=== PATIENT | male | born 1985 | race Caucasian/White ===

== ENCOUNTER → 2016-08-16 | Outpatient (REF) | payer OTHER | END | disposition home or self-care (01) | LOC: M LAB REF 18:04 | PROVIDERS: ATTEND Physician Assistant Medical | DX: Z13.9 Encounter for screening, unspecified (principal) ==

== ENCOUNTER 2016-08-18 16:15 | Emergency (ER) | payer OTHER ==
[2016-08-18] MEDS ORDERED: dexameTHASONE 20 MG/5 ML VIAL (J1100) As Ordered ONE (17:26)
[2016-08-18] MEDS ORDERED: CLINDAMYCIN INJ 900MG/6ML VIAL As Ordered ONE (17:26)
[2016-08-18] MEDS ORDERED: LIDOCAINE W/EPINEPHRINE 1% 20ML VIAL As Ordered ONE (17:40)
[2016-08-18 17:59] LABS: ANION GAP 12 MEQ/L (8-16); BLOOD UREA NITROGEN 8 MG/DL (7-18); CALCIUM LEVEL 9.8 MG/DL (8.5-10.1); CARBON DIOXIDE LEVEL 30 MEQ/L (21-32); CHLORIDE LEVEL 100 MEQ/L (98-107); CREATININE FOR GFR 0.77 MG/DL (0.70-1.30); GLOMERULAR FILTRATION RATE > 60.0 (>60); GLUCOSE, FASTING 97 MG/DL (70-105); POTASSIUM SERUM 3.9 MEQ/L (3.5-5.1); SODIUM LEVEL 142 MEQ/L (136-145)
[2016-08-18 18:00] LABS: MEAN CORPUSCULAR HEMOGLOBIN 33.5 pg (27.0-33.0); MEAN CORPUSCULAR HGB CONC 34.6 g/dl (32.0-36.5); MEAN CORPUSCULAR VOLUME 96.8 fl (80.0-96.0); RED CELL DISTRIBUTION WIDTH 11.5 % (11.5-14.5)
--- NOTE | 2016-08-18 20:02 | EDDOCDS ---
Nurse's Notes [facility] Name: Farhat Sands Age: 30 yrs Sex: Male : 1985 Arrival Date: 08/18/2016 Time: 16:15 Bed TR7 Private MD: NO PRIMARY PHYSICIAN, . Diagnosis: Peritonsillar abscess Presentation: 08/18 16:18 Presenting complaint: Patient states: Sore throat since , difficulty dwg swallowing. Also having chills and headaches. Adult Sepsis Screening: The patient does not have new or worsening altered mentation. Patient's respiratory rate is less than 22. Systolic blood pressure is greater than 100. Patient has a qSOFA score of 0- Negative Sepsis Screen. Suicide/Homicide risk assessment- the patient denies having any suicidal and/or homicidal ideations and does not present with any other emotional, behavioral or mental health complaints. Status: Patient is not a behavioral services tech or dependent. Transition of care: patient was not received from another setting of care. 16:18 Acuity: MARVA Level 4 dwg 16:18 Method Of Arrival: Walkin/Carried/Asstd dwg Triage Assessment: 16:21 General: Appears in no apparent distress. Pain: Pain currently is 7 out of 10 on a pain dwg scale. HIV screening NA for this visit Offered previously. Historical: - Allergies: no known allergies; - Home Meds: 1. Motrin 600 mg Oral tab 1 tab prn (Last dose: 08/18/2016 14:00) 2. Theraflu Nighttime Severe Cold-Cough oral oral Unknown as needed (Last dose: 08/18/2016 08:00) - PMHx: none; - PSHx: none; - Social history: Smoking status: Patient uses tobacco products, current every day smoker. No barriers to communication noted, The patient speaks fluent Sami. - Family history: Not pertinent. - : The pt / caregiver states he / she is not on anticoagulants. Home medication list is obtained from the patient. - Exposure Risk Screening:: None identified. Screenin:59 Screening information is obtained from the patient. Fall risk: No risks identified. kcs Assistance ADL's: requires no assistance with activities of daily living. Abuse/DV Screen: The patient / caregiver reports he/she is: not in a situation that causes fear, pain or injury. Nutritional screening: No deficits noted. Advance Directives: Currently, there is no health care proxy. There is no living will. home support is adequate. Assessment: 16:59 General: Appears comfortable, well developed, well nourished, well groomed, Behavior is kcs cooperative, pleasant. Pain: Location: throat. Neurological: Level of Consciousness is awake, alert. EENT: Throat has enlarged tonsils on left No drooling, no stridor. Respiratory: Airway is patent Respiratory effort is even, unlabored, Respiratory pattern is regular, symmetrical. Derm: Skin is intact, is healthy with good turgor, Skin is dry, Skin is normal. 17:29 Adult Sepsis Screening: The patient does not have new or worsening altered mentation. dsf Patient's respiratory rate is less than 22. Systolic blood pressure is greater than 100. Patient has a qSOFA score of 0- Negative Sepsis Screen. General: Appears in no apparent distress, comfortable, Behavior is appropriate for age, cooperative, pleasant. Pain: Location: throat Pain currently is 7 out of 10 on a pain scale. Quality of pain is described as sharp. Neurological: Level of Consciousness is awake, alert. Cardiovascular: Capillary refill < 3 seconds. Respiratory: Airway is patent Respiratory effort is even, unlabored, Respiratory pattern is regular, symmetrical. Derm: Skin is pink, warm & dry. 17:31 EENT: Throat has enlarged tonsils on left. dsf 17:48 General: Dr. Garzon in examining patient and aspirated from the left tonsil . dsf 18:35 General: Appears in no apparent distress, comfortable, Behavior is appropriate for age, dsf cooperative. Pain: Location: throat Pain currently is 3 out of 10 on a pain scale. Neurological: Level of Consciousness is awake, alert. Cardiovascular: Capillary refill < 3 seconds. Respiratory: Airway is patent Respiratory effort is even, unlabored, Respiratory pattern is regular, symmetrical. Derm: Skin is pink, warm & dry. Vital Signs: 16:17 BP 172 / 92; Pulse 110; Resp 18; Temp 99.6(O); Pulse Ox 100% ; Weight 65.77 kg; Height cmb 5 ft. 10 in. (177.80 cm); Pain 7/10; 18:29 BP 118 / 64; Pulse 104; Resp 18; Temp 100.1; Pulse Ox 98% ; Pain 5/10; jam1 16:17 Body Mass Index 20.81 (65.77 kg, 177.80 cm) cmb Vitals: 16:17 Log In Time: August 18, 2016 at 16:15. cmb ED Course: 16:16 Patient visited by Beatriz Ratliff. cmb 16:16 NO PRIMARY PHYSICIAN, . is Private Physician. cmb 16:16 Patient moved to Waiting cmb 16:17 Patient moved to Pre RCE cmb 16:20 Triage Initiated dwg 16:53 Olman North FNP is PHCP. ke 16:53 Patient moved to I8 / 16 dwg 16:54 Patient visited by Olman North FNP. ke 16:54 Patient visited by Olman North FNP. ke 16:59 The patient / caregiver is instructed regarding the plan of care and ED course. kcs 17:27 Patient visited by Olman North FNP. ke 17:29 CBC Sent. dsf 17:29 BMP Sent. dsf 17:29 Inserted saline lock: 18 gauge in left antecubital area The patient tolerated the dsf procedure well. 17:32 Patient visited by Noy Toro,RN. dsf 17:48 Patient visited by Noy Toro,BONILLA. dsf 17:57 Puneet Garzon is Referral Physician. ke 18:07 Throat Culture Sent. kc3 18:26 Patient name changed from Farhat\S\\S\Grinnell\S\ to Farhat\S\ \S\Grinnell. EDMS 18:30 [facility] [place] was scanned into [employer] and attached to record. gjb 18:35 Discontinued lock intact, bleeding controlled, pressure dressing applied, No dsf redness/swelling at site. No procedures done that require assistance. 19:19 Patient moved to TR7 kc3 Administered Medications: 17:55 Drug: Clindamycin 900 mg [clindamycin 150 mg/mL injection solution] Route: IVPB; kc3 Infused Over: 30 mins; Site: left antecubital; 18:27 Follow up: IV Status: Completed infusion; IV Intake: 50ml dsf 17:55 Drug: Dexamethasone 10 mg [dexamethasone 4 mg/mL injection solution] Route: IV; Rate: kc3 bolus; Site: left antecubital; 17:55 Drug: NS 0.9% 1000 ml [sodium chloride 0.9 % intravenous solution] Route: IV; Rate: 250 kc3 mL/hr; Site: left antecubital; Intake: 18:27 IV: 50.00ml; Total: 50.00ml. dsf Order Results: Lab Order: CBC; SPEC08/18/16 17:19 Test: WHITE BLOOD COUNT; Value: 15.0; Range: 4.0-10.0; Abnormal: Above high normal; Units: K/mm3; Status: F Test: RED BLOOD COUNT; Value: 4.35; Range: 4.30-6.10; Units: M/mm3; Status: F Test: HEMOGLOBIN; Value: 14.5; Range: 14.0-18.0; Units: g/dl; Status: F Test: HEMATOCRIT; Value: 42.1; Range: 42.0-52.0; Units: %; Status: F Test: MEAN CORPUSCULAR VOLUME; Value: 96.8; Range: 80.0-96.0; Abnormal: Above high normal; Units: fl; Status: F Test: MEAN CORPUSCULAR HEMOGLOBIN; Value: 33.5; Range: 27.0-33.0; Abnormal: Above high normal; Units: pg; Status: F Test: MEAN CORPUSCULAR HGB CONC; Value: 34.6; Range: 32.0-36.5; Units: g/dl; Status: F Test: RED CELL DISTRIBUTION WIDTH; Value: 11.5; Range: 11.5-14.5; Units: %; Status: F Test: PLATELET COUNT, AUTOMATED; Value: 352; Range: 150-450; Units: k/mm3; Status: F Lab Order: BMP; SPEC'08/18/16 17:19 Test: GLUCOSE, FASTING; Value: 97; Range: 70-105; Units: MG/DL; Status: F Test: BLOOD UREA NITROGEN; Value: 8; Range: 7-18; Units: MG/DL; Status: F Test: CREATININE FOR GFR; Value: 0.77; Range: 0.70-1.30; Units: MG/DL; Status: F Test: GLOMERULAR FILTRATION RATE; Value: > 60.0; Range: >60; Status: F Test: SODIUM LEVEL; Value: 142; Range: 136-145; Units: MEQ/L; Status: F Test: POTASSIUM SERUM; Value: 3.9; Range: 3.5-5.1; Units: MEQ/L; Status: F Test: CHLORIDE LEVEL; Value: 100; Range: 98-107; Units: MEQ/L; Status: F Test: CARBON DIOXIDE LEVEL; Value: 30; Range: 21-32; Units: MEQ/L; Status: F Test: ANION GAP; Value: 12; Range: 8-16; Units: MEQ/L; Status: F Test: CALCIUM LEVEL; Value: 9.8; Range: 8.5-10.1; Units: MG/DL; Status: F Test Note: ; Units are mL/min/1.73 m2 Chronic Kidney Disease Staging per NKF: Stage I & II GFR >=60 Normal to Mildly Decreased Stage III GFR 30-59 Moderately Decreased Stage IV GFR 15-29 Severely Decreased Stage V GFR <15 Very Little GFR Left ESRD GFR <15 on RETAIL MERCHANDISER Outcome: 17:57 Discharge ordered by Provider. ke 18:35 Discharge Assessment: Patient awake, alert and oriented x 3. No cognitive and/or dsf functional deficits noted. Patient verbalized understanding of disposition instructions. patient administered narcotics - no. The following High Risk Discharge criteria are identified: None. Discharged to home ambulatory. Condition: stable. Discharge instructions given to patient, Instructed on discharge instructions, follow up and referral plans. medication usage, no driving heavy equipment, Demonstrated understanding of instructions, medications, Pt was receptive of discharge instructions/ teaching. Prescriptions given X 2, Work note provided to patient. No special radiology studies were completed. Property sent home with patient. 20:01 Patient left the ED. dsf Signatures: Dispatcher [employer] EDDenise Combs, RN RN Narinder Noguera RN RN Bessy Kate, GANG INVESTIGATOR GANG INVESTIGATOR jam1 Olman North, MANUFACTURING TEST TECHNICIAN MANUFACTURING TEST TECHNICIAN Noy Lyle RN RN dsf Boshart, Chelsea cmb Crane, Kelsi, RN RN kc3 Asmita Harrison MTDD
--- NOTE | 2016-08-18 20:02 | EDDOCDS ---
Physician Documentation [facility] Name: Farhat Sands Age: 30 yrs Sex: Male : 1985 Arrival Date: 08/18/2016 Time: 16:15 Bed TR7 Private MD: NO PRIMARY PHYSICIAN, . Disposition: 08/18/16 17:57 Discharged to Home/Self Care. Impression: Peritonsillar abscess. - Condition is Stable. - Discharge Instructions: Peritonsillar Abscess. - Prescriptions for Clindamycin HCl 150 mg Oral Capsule - take 1 capsule by ORAL route 4 times per day for 10 days; 40 capsule. [place] 5- 325 mg Oral Tablet - take 1 tablet by ORAL route every 6 hours As needed MDD: 4 tabs; 20 tablet. - Medication Reconciliation, Local Pharmacy Hours, Work Release Form - 3 day form. - Follow up: Puneet Garzon; When: 1 week; Reason: Recheck today's complaints, Continuance of care. - Problem is an ongoing problem. - Symptoms have improved. Historical: - Allergies: no known allergies; - Home Meds: 1. Motrin 600 mg Oral tab 1 tab prn (Last dose: 08/18/2016 14:00) 2. Theraflu Nighttime Severe Cold-Cough oral oral Unknown as needed (Last dose: 08/18/2016 08:00) - PMHx: none; - PSHx: none; - Social history: Smoking status: Patient uses tobacco products, current every day smoker. No barriers to communication noted, The patient speaks fluent Icelandic. - Family history: Not pertinent. - : The pt / caregiver states he / she is not on anticoagulants. Home medication list is obtained from the patient. - Exposure Risk Screening:: None identified. Vital Signs: 08/18 16:17 BP 172 / 92; Pulse 110; Resp 18; Temp 99.6(O); Pulse Ox 100% ; Weight 65.77 kg / 145 cmb lbs; Height 5 ft. 10 in. (177.80 cm); Pain 7/10; 18:29 BP 118 / 64; Pulse 104; Resp 18; Temp 100.1; Pulse Ox 98% ; Pain 5/10; jam1 16:17 Body Mass Index 20.81 (65.77 kg, 177.80 cm) cmb MDM: 17:07 Clindamycin 900 mg IVPB once over 30 mins; dilute in 50mL of NS or D5W ordered. ke 17:07 Dexamethasone 10 mg IV at bolus once ordered. ke 17:07 NS 0.9% 1000 ml IV at 250 mL/hr continuous ordered. ke 17:08 CBC Ordered. EDMS 17:08 BMP Ordered. EDMS 17:29 IV Saline Lock ordered. dsf 17:57 Throat Culture Ordered. EDMS 18:14 Financial registration complete. gjb 18:30 [facility] Payment Agreement was scanned into [employer] and attached to record. gjb Administered Medications: 17:55 Drug: Clindamycin 900 mg [clindamycin 150 mg/mL injection solution] Route: IVPB; kc3 Infused Over: 30 mins; Site: left antecubital; 18:27 Follow up: IV Status: Completed infusion; IV Intake: 50ml dsf 17:55 Drug: Dexamethasone 10 mg [dexamethasone 4 mg/mL injection solution] Route: IV; Rate: kc3 bolus; Site: left antecubital; 17:55 Drug: NS 0.9% 1000 ml [sodium chloride 0.9 % intravenous solution] Route: IV; Rate: 250 kc3 mL/hr; Site: left antecubital; Signatures: Dispatcher [employer] EDDenise Combs RN Narinder Barone RN RN dwg Elsner, Karl, FNP FNP ke Fuller, DesireeRN RN dsSalina Bustillos, PARos PA-Lio dt4 Asmita Harrison Kelsi RN kc3 The chart was reviewed and I authenticate all verbal orders and agree with the evaluation and treatment provided.Corrections: (The following items were deleted from the chart) 17:01 16:37 Strep Screen, Nursing ordered. dt4 kcs Attachments: 18:30 [facility] Payment Agreement gjb MTDD
--- NOTE | 2016-08-19 21:17 | HPE ---
DATE OF ADMISSION: 08/18/2016 Farhat Sands is a 30-year-old gentleman who presents with a history of a sore throat. It started , i.e., 4 days ago. He has not received any treatment. It is worse on the left side. He had infectious mononucleosis many years ago and has had recurrent sore throats since then. He has not had a sore throat, however, for the last 3 years. It is hard to swallow because of the pain. He has no difficulty with breathing. He can swallow liquids. Otherwise the patient is healthy. Examination shows he is alert and oriented and in no distress per breathing. He has good range of motion of his mandible. He could open his mouth well. There is erythema in the peritonsillar area on the right side but not a lot of edema. He has 2+ to 3+ tonsillar hypertrophy. He has some enlargement of the jugulodigastric lymph nodes but not much. Under local anesthesia I infiltrated with lidocaine and epinephrine. I did a needle aspiration and there was no fluid there. IMPRESSION: Patient has a left peritonsillar cellulitis. Patient will receive intravenous (IV) antibiotic times one and steroids and then go home on oral clindamycin. If his symptoms become worse, then he will return for a followup.
--- NOTE | 2016-08-20 21:02 | EDDOCDS ---
Physician Documentation [facility] Name: Farhat Sands Age: 30 yrs Sex: Male : 1985 Arrival Date: 08/18/2016 Time: 16:15 Bed TR7 Private MD: NO PRIMARY PHYSICIAN, . Disposition: 08/18/16 17:57 Discharged to Home/Self Care. Impression: Peritonsillar abscess. - Condition is Stable. - Discharge Instructions: Peritonsillar Abscess. - Prescriptions for Clindamycin HCl 150 mg Oral Capsule - take 1 capsule by ORAL route 4 times per day for 10 days; 40 capsule. [place] 5- 325 mg Oral Tablet - take 1 tablet by ORAL route every 6 hours As needed MDD: 4 tabs; 20 tablet. - Medication Reconciliation, Local Pharmacy Hours, Work Release Form - 3 day form. - Follow up: Puneet Garzon; When: 1 week; Reason: Recheck today's complaints, Continuance of care. - Problem is an ongoing problem. - Symptoms have improved. Historical: - Allergies: no known allergies; - Home Meds: 1. Motrin 600 mg Oral tab 1 tab prn (Last dose: 08/18/2016 14:00) 2. Theraflu Nighttime Severe Cold-Cough oral oral Unknown as needed (Last dose: 08/18/2016 08:00) - PMHx: none; - PSHx: none; - Social history: Smoking status: Patient uses tobacco products, current every day smoker. No barriers to communication noted, The patient speaks fluent Upper Sorbian. - Family history: Not pertinent. - : The pt / caregiver states he / she is not on anticoagulants. Home medication list is obtained from the patient. - Exposure Risk Screening:: None identified. Vital Signs: 08/18 16:17 BP 172 / 92; Pulse 110; Resp 18; Temp 99.6(O); Pulse Ox 100% ; Weight 65.77 kg / 145 cmb lbs; Height 5 ft. 10 in. (177.80 cm); Pain 7/10; 18:29 BP 118 / 64; Pulse 104; Resp 18; Temp 100.1; Pulse Ox 98% ; Pain 5/10; jam1 16:17 Body Mass Index 20.81 (65.77 kg, 177.80 cm) cmb MDM: 17:07 Clindamycin 900 mg IVPB once over 30 mins; dilute in 50mL of NS or D5W ordered. ke 17:07 Dexamethasone 10 mg IV at bolus once ordered. ke 17:07 NS 0.9% 1000 ml IV at 250 mL/hr continuous ordered. ke 17:08 CBC Ordered. EDMS 17:08 BMP Ordered. EDMS 17:29 IV Saline Lock ordered. dsf 17:57 Throat Culture Ordered. EDMS 18:14 Financial registration complete. [facility] :30 [facility] Payment Agreement was scanned into [employer] and attached to record. [facility] 08/19 11:33 T-Sheet-- Draft Copy was scanned into [employer] and attached to record. gb Administered Medications: 08/18 17:55 Drug: Clindamycin 900 mg [clindamycin 150 mg/mL injection solution] Route: IVPB; kc3 Infused Over: 30 mins; Site: left antecubital; 18:27 Follow up: IV Status: Completed infusion; IV Intake: 50ml dsf 17:55 Drug: Dexamethasone 10 mg [dexamethasone 4 mg/mL injection solution] Route: IV; Rate: kc3 bolus; Site: left antecubital; 17:55 Drug: NS 0.9% 1000 ml [sodium chloride 0.9 % intravenous solution] Route: IV; Rate: 250 kc3 mL/hr; Site: left antecubital; Signatures: Dispatcher [facility] Denise Walker RN Narinder Barone RN RN dwg Barnhardt, Gloria, Reg Reg Olman Sellers, ASSEMBLER INSTALLER GENERAL ASSEMBLER INSTALLER GENERALNoy Angel RN RN dsf Tschudi, Diane, PA-C PA-C dt4 Beck, Gabriela gjb Crane, Kelsi RN kc3 The chart was reviewed and I authenticate all verbal orders and agree with the evaluation and treatment provided.Corrections: (The following items were deleted from the chart) 17:01 16:37 Strep Screen, Nursing ordered. dt4 herb Attachments: :30 [facility] Payment Agreement [facility] 08/19 11:33 T-Sheet-- Draft Copy gb Chart Complete MTDD
--- NOTE | 2016-08-20 21:02 | EDDOCDS ---
Nurse's Notes [facility] Name: Farhat Sands Age: 30 yrs Sex: Male : 1985 Arrival Date: 08/18/2016 Time: 16:15 Bed TR7 Private MD: NO PRIMARY PHYSICIAN, . Diagnosis: Peritonsillar abscess Presentation: 08/18 16:18 Presenting complaint: Patient states: Sore throat since , difficulty dwg swallowing. Also having chills and headaches. Adult Sepsis Screening: The patient does not have new or worsening altered mentation. Patient's respiratory rate is less than 22. Systolic blood pressure is greater than 100. Patient has a qSOFA score of 0- Negative Sepsis Screen. Suicide/Homicide risk assessment- the patient denies having any suicidal and/or homicidal ideations and does not present with any other emotional, behavioral or mental health complaints. 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 Transition of care: patient was not received from another setting of care. 16:18 Acuity: MARVA Level 4 dwg 16:18 Method Of Arrival: Walkin/Carried/Asstd dwg Triage Assessment: 16:21 General: Appears in no apparent distress. Pain: Pain currently is 7 out of 10 on a pain dwg scale. HIV screening NA for this visit Offered previously. Historical: - Allergies: no known allergies; - Home Meds: 1. Motrin 600 mg Oral tab 1 tab prn (Last dose: 08/18/2016 14:00) 2. Theraflu Nighttime Severe Cold-Cough oral oral Unknown as needed (Last dose: 08/18/2016 08:00) - PMHx: none; - PSHx: none; - Social history: Smoking status: Patient uses tobacco products, current every day smoker. No barriers to communication noted, The patient speaks fluent Azeri. - Family history: Not pertinent. - : The pt / caregiver states he / she is not on anticoagulants. Home medication list is obtained from the patient. - Exposure Risk Screening:: None identified. Screenin:59 Screening information is obtained from the patient. Fall risk: No risks identified. kcs Assistance ADL's: requires no assistance with activities of daily living. Abuse/DV Screen: The patient / caregiver reports he/she is: not in a situation that causes fear, pain or injury. Nutritional screening: No deficits noted. Advance Directives: Currently, there is no health care proxy. There is no living will. home support is adequate. Assessment: 16:59 General: Appears comfortable, well developed, well nourished, well groomed, Behavior is kcs cooperative, pleasant. Pain: Location: throat. Neurological: Level of Consciousness is awake, alert. EENT: Throat has enlarged tonsils on left No drooling, no stridor. Respiratory: Airway is patent Respiratory effort is even, unlabored, Respiratory pattern is regular, symmetrical. Derm: Skin is intact, is healthy with good turgor, Skin is dry, Skin is normal. 17:29 Adult Sepsis Screening: The patient does not have new or worsening altered mentation. dsf Patient's respiratory rate is less than 22. Systolic blood pressure is greater than 100. Patient has a qSOFA score of 0- Negative Sepsis Screen. General: Appears in no apparent distress, comfortable, Behavior is appropriate for age, cooperative, pleasant. Pain: Location: throat Pain currently is 7 out of 10 on a pain scale. Quality of pain is described as sharp. Neurological: Level of Consciousness is awake, alert. Cardiovascular: Capillary refill < 3 seconds. Respiratory: Airway is patent Respiratory effort is even, unlabored, Respiratory pattern is regular, symmetrical. Derm: Skin is pink, warm & dry. 17:31 EENT: Throat has enlarged tonsils on left. dsf 17:48 General: Dr. Garzon in examining patient and aspirated from the left tonsil . dsf 18:35 General: Appears in no apparent distress, comfortable, Behavior is appropriate for age, dsf cooperative. Pain: Location: throat Pain currently is 3 out of 10 on a pain scale. Neurological: Level of Consciousness is awake, alert. Cardiovascular: Capillary refill < 3 seconds. Respiratory: Airway is patent Respiratory effort is even, unlabored, Respiratory pattern is regular, symmetrical. Derm: Skin is pink, warm & dry. Vital Signs: 16:17 BP 172 / 92; Pulse 110; Resp 18; Temp 99.6(O); Pulse Ox 100% ; Weight 65.77 kg; Height cmb 5 ft. 10 in. (177.80 cm); Pain 7/10; 18:29 BP 118 / 64; Pulse 104; Resp 18; Temp 100.1; Pulse Ox 98% ; Pain 5/10; jam1 16:17 Body Mass Index 20.81 (65.77 kg, 177.80 cm) cmb Vitals: 16:17 Log In Time: August 18, 2016 at 16:15. cmb ED Course: 16:16 Patient visited by Beatriz Ratliff. cmb 16:16 NO PRIMARY PHYSICIAN, . is Private Physician. cmb 16:16 Patient moved to Waiting cmb 16:17 Patient moved to Pre RCE cmb 16:20 Triage Initiated dwg 16:53 Olman North FNP is PHCP. ke 16:53 Patient moved to I8 / 16 dwg 16:54 Patient visited by Olman North FNP. ke 16:54 Patient visited by Olman North FNP. ke 16:59 The patient / caregiver is instructed regarding the plan of care and ED course. kcs 17:27 Patient visited by Olman North FNP. ke 17:29 CBC Sent. dsf 17:29 BMP Sent. dsf 17:29 Inserted saline lock: 18 gauge in left antecubital area The patient tolerated the dsf procedure well. 17:32 Patient visited by Noy Toro,RN. dsf 17:48 Patient visited by Noy Toro,BONILLA. dsf 17:57 Puneet Garzon is Referral Physician. ke 18:07 Throat Culture Sent. kc3 18:26 Patient name changed from Farhat\S\\S\[place]\S\ to Farhat\S\ \S\[place]. EDMS 18:30 [facility] Payment Agreement was scanned into [employer] and attached to record. gjb 18:35 Discontinued lock intact, bleeding controlled, pressure dressing applied, No dsf redness/swelling at site. No procedures done that require assistance. 19:19 Patient moved to TR7 kc3 08/19 11:33 T-Sheet-- Draft Copy was scanned into [employer] and attached to record. gb Administered Medications: 08/18 17:55 Drug: Clindamycin 900 mg [clindamycin 150 mg/mL injection solution] Route: IVPB; kc3 Infused Over: 30 mins; Site: left antecubital; 18:27 Follow up: IV Status: Completed infusion; IV Intake: 50ml dsf 17:55 Drug: Dexamethasone 10 mg [dexamethasone 4 mg/mL injection solution] Route: IV; Rate: kc3 bolus; Site: left antecubital; 17:55 Drug: NS 0.9% 1000 ml [sodium chloride 0.9 % intravenous solution] Route: IV; Rate: 250 kc3 mL/hr; Site: left antecubital; Intake: 18:27 IV: 50.00ml; Total: 50.00ml. dsf Order Results: Lab Order: CBC; SPEC'M 08/18/16 17:19 Test: WHITE BLOOD COUNT; Value: 15.0; Range: 4.0-10.0; Abnormal: Above high normal; Units: K/mm3; Status: F Test: RED BLOOD COUNT; Value: 4.35; Range: 4.30-6.10; Units: M/mm3; Status: F Test: HEMOGLOBIN; Value: 14.5; Range: 14.0-18.0; Units: g/dl; Status: F Test: HEMATOCRIT; Value: 42.1; Range: 42.0-52.0; Units: %; Status: F Test: MEAN CORPUSCULAR VOLUME; Value: 96.8; Range: 80.0-96.0; Abnormal: Above high normal; Units: fl; Status: F Test: MEAN CORPUSCULAR HEMOGLOBIN; Value: 33.5; Range: 27.0-33.0; Abnormal: Above high normal; Units: pg; Status: F Test: MEAN CORPUSCULAR HGB CONC; Value: 34.6; Range: 32.0-36.5; Units: g/dl; Status: F Test: RED CELL DISTRIBUTION WIDTH; Value: 11.5; Range: 11.5-14.5; Units: %; Status: F Test: PLATELET COUNT, AUTOMATED; Value: 352; Range: 150-450; Units: k/mm3; Status: F Lab Order: BMP; SPEC'M 08/18/16 17:19 Test: GLUCOSE, FASTING; Value: 97; Range: 70-105; Units: MG/DL; Status: F Test: BLOOD UREA NITROGEN; Value: 8; Range: 7-18; Units: MG/DL; Status: F Test: CREATININE FOR GFR; Value: 0.77; Range: 0.70-1.30; Units: MG/DL; Status: F Test: GLOMERULAR FILTRATION RATE; Value: > 60.0; Range: >60; Status: F Test: SODIUM LEVEL; Value: 142; Range: 136-145; Units: MEQ/L; Status: F Test: POTASSIUM SERUM; Value: 3.9; Range: 3.5-5.1; Units: MEQ/L; Status: F Test: CHLORIDE LEVEL; Value: 100; Range: 98-107; Units: MEQ/L; Status: F Test: CARBON DIOXIDE LEVEL; Value: 30; Range: 21-32; Units: MEQ/L; Status: F Test: ANION GAP; Value: 12; Range: 8-16; Units: MEQ/L; Status: F Test: CALCIUM LEVEL; Value: 9.8; Range: 8.5-10.1; Units: MG/DL; Status: F Test Note: ; Units are mL/min/1.73 m2 Chronic Kidney Disease Staging per NKF: Stage I & II GFR >=60 Normal to Mildly Decreased Stage III GFR 30-59 Moderately Decreased Stage IV GFR 15-29 Severely Decreased Stage V GFR <15 Very Little GFR Left ESRD GFR <15 on COLLECTIVE BARGAINING SPECIALIST Lab Order: Throat Culture; SPEC'M 08/18/16 18:06 Test: THROAT CULTURE; Value: NG/HE RESULTS DECREASED NORMAL HE PRESENT; Status: F Test: THROAT CULTURE; Value: ORGANISM 1: STREPTOCOCCUS PYOGENES GRP A; Status: F Test: THROAT CULTURE; Value: STREPTOCOCCUS PYOGENES GRP A; Status: F Test: THROAT CULTURE; Value: QUANTITY OF GROWTH MODERATE; Status: F Outcome: 17:57 Discharge ordered by Provider. ke 18:35 Discharge Assessment: Patient awake, alert and oriented x 3. No cognitive and/or dsf functional deficits noted. Patient verbalized understanding of disposition instructions. patient administered narcotics - no. The following High Risk Discharge criteria are identified: None. Discharged to home ambulatory. Condition: stable. Discharge instructions given to patient, Instructed on discharge instructions, follow up and referral plans. medication usage, no driving heavy equipment, Demonstrated understanding of instructions, medications, Pt was receptive of discharge instructions/ teaching. Prescriptions given X 2, Work note provided to patient. No special radiology studies were completed. Property sent home with patient. 20:01 Patient left the ED. dsf Signatures: Dispatcher [facility] Denise Walker RN RN kcs Greene, Daniel, RN RN dwg Murphy, Jane, HOG GRADER HOG GRADER jam1 Tammi Otto, Reg Reg gb Olman North, BOTTLE GAUGER BOTTLE GAUGER Noy Lyle,RN RN Beatriz Mcrae Kelsi,BONILLA RN kc3 Asmita Harrison Chart Complete MTDD
--- NOTE | 2016-08-20 21:02 | EDDOCDS ---
Physician Documentation [facility] Name: Farhat Sands Age: 30 yrs Sex: Male : 1985 Arrival Date: 08/18/2016 Time: 16:15 Bed TR7 Private MD: NO PRIMARY PHYSICIAN, . Disposition: 08/18/16 17:57 Discharged to Home/Self Care. Impression: Peritonsillar abscess. - Condition is Stable. - Discharge Instructions: Peritonsillar Abscess. - Prescriptions for Clindamycin HCl 150 mg Oral Capsule - take 1 capsule by ORAL route 4 times per day for 10 days; 40 capsule. [place] 5- 325 mg Oral Tablet - take 1 tablet by ORAL route every 6 hours As needed MDD: 4 tabs; 20 tablet. - Medication Reconciliation, Local Pharmacy Hours, Work Release Form - 3 day form. - Follow up: Puneet Garzon; When: 1 week; Reason: Recheck today's complaints, Continuance of care. - Problem is an ongoing problem. - Symptoms have improved. Historical: - Allergies: no known allergies; - Home Meds: 1. Motrin 600 mg Oral tab 1 tab prn (Last dose: 08/18/2016 14:00) 2. Theraflu Nighttime Severe Cold-Cough oral oral Unknown as needed (Last dose: 08/18/2016 08:00) - PMHx: none; - PSHx: none; - Social history: Smoking status: Patient uses tobacco products, current every day smoker. No barriers to communication noted, The patient speaks fluent Latvian. - Family history: Not pertinent. - : The pt / caregiver states he / she is not on anticoagulants. Home medication list is obtained from the patient. - Exposure Risk Screening:: None identified. Vital Signs: 08/18 16:17 BP 172 / 92; Pulse 110; Resp 18; Temp 99.6(O); Pulse Ox 100% ; Weight 65.77 kg / 145 cmb lbs; Height 5 ft. 10 in. (177.80 cm); Pain 7/10; 18:29 BP 118 / 64; Pulse 104; Resp 18; Temp 100.1; Pulse Ox 98% ; Pain 5/10; jam1 16:17 Body Mass Index 20.81 (65.77 kg, 177.80 cm) cmb MDM: 17:07 Clindamycin 900 mg IVPB once over 30 mins; dilute in 50mL of NS or D5W ordered. ke 17:07 Dexamethasone 10 mg IV at bolus once ordered. ke 17:07 NS 0.9% 1000 ml IV at 250 mL/hr continuous ordered. ke 17:08 CBC Ordered. EDMS 17:08 BMP Ordered. EDMS 17:29 IV Saline Lock ordered. dsf 17:57 Throat Culture Ordered. EDMS 18:14 Financial registration complete. [facility] :30 [facility] Payment Agreement was scanned into [email or web address] and attached to record. [facility] 08/19 11:33 T-Sheet-- Draft Copy was scanned into [email or web address] and attached to record. gb Administered Medications: 08/18 17:55 Drug: Clindamycin 900 mg [clindamycin 150 mg/mL injection solution] Route: IVPB; kc3 Infused Over: 30 mins; Site: left antecubital; 18:27 Follow up: IV Status: Completed infusion; IV Intake: 50ml dsf 17:55 Drug: Dexamethasone 10 mg [dexamethasone 4 mg/mL injection solution] Route: IV; Rate: kc3 bolus; Site: left antecubital; 17:55 Drug: NS 0.9% 1000 ml [sodium chloride 0.9 % intravenous solution] Route: IV; Rate: 250 kc3 mL/hr; Site: left antecubital; Signatures: Dispatcher [facility] Denise Walker RN Narinder Barone RN RN dwg Barnhardt, Gloria, Reg Reg Olman Sellers, HEALTH AND HUMAN PERFORMANCE PROFESSOR HEALTH AND HUMAN PERFORMANCE PROFESSORNoy Angel RN RN dsf Tschudi, Diane, PA-C PA-C dt4 Beck, Gabriela gjb Crane, Kelsi RN kc3 The chart was reviewed and I authenticate all verbal orders and agree with the evaluation and treatment provided.Corrections: (The following items were deleted from the chart) 17:01 16:37 Strep Screen, Nursing ordered. dt4 herb Attachments: :30 [facility] Payment Agreement [facility] 08/19 11:33 T-Sheet-- Draft Copy gb Chart Complete MTDD
== END 2016-08-18 20:01 | disposition home or self-care (01) ==
LOC: M ED 16:15
DX: J36 Peritonsillar abscess (principal)
CPT/HCPCS: 80048; 85027; 87070; 87077; 96365; 96375; 99284; J1100

== ENCOUNTER → 2017-01-25 | Outpatient (CLI) | payer OTHER, SELFPAY ==
[2017-01-25 17:05] LABS: MEAN CORPUSCULAR HEMOGLOBIN 33.1 pg (27.0-33.0); MEAN CORPUSCULAR HGB CONC 33.7 g/dl (32.0-36.5); MEAN CORPUSCULAR VOLUME 98.3 fl (80.0-96.0); RED CELL DISTRIBUTION WIDTH 11.8 % (11.5-14.5); WHITE BLOOD COUNT 7.1 K/mm3 (4.0-10.0)
[2017-01-25 17:15] LABS: ALBUMIN 4.3 GM/DL (3.2-5.2); ALBUMIN/GLOBULIN RATIO 1.23 (1.00-1.93); ALKALINE PHOSPHATASE 76 U/L (45-117); ALT/SGPT 26 U/L (12-78); ANION GAP 4 MEQ/L (8-16); AST/SGOT 22 U/L (15-37); BILIRUBIN,TOTAL 0.3 MG/DL (0.2-1.0); BLOOD UREA NITROGEN 10 MG/DL (7-18); CALCIUM LEVEL 9.4 MG/DL (8.5-10.1); CARBON DIOXIDE LEVEL 34 MEQ/L (21-32); CHLORIDE LEVEL 103 MEQ/L (98-107); CREATININE FOR GFR 0.94 MG/DL (0.70-1.30); GLOMERULAR FILTRATION RATE > 60.0 (>60); GLUCOSE, FASTING 96 MG/DL (70-105); POTASSIUM SERUM 4.1 MEQ/L (3.5-5.1); SODIUM LEVEL 141 MEQ/L (136-145); TOTAL PROTEIN 7.8 GM/DL (6.4-8.2)
== END ==
LOC: M LAB 16:26
PROVIDERS: ATTEND Family Medicine
DX: F11.20 Opioid dependence, uncomplicated (principal)

== ENCOUNTER → 2017-01-25 | Outpatient (CLI) | payer OTHER, SELFPAY ==
--- NOTE | 2017-01-27 07:26 | ECGEPIP ---
Stationary ECG Study [facility] Test Date: 2017-01-25 Pat Name: SAMMI BROWN Department: Room: - Gender: M Electrical Power Engineer: : 1985 Requested By: Narinder Powers Order Number: [id number] Reading MD: Kylee Hanley Measurements Intervals [place] Rate: 91 P: 82 MD: 151 QRS: 67 QRSD: 89 T: 53 QT: 336 QTc: 415 Interpretive Statements SINUS RHYTHM NO PRIOR Electronically Signed On 01-27-2017 7:26:00 EDT by Kylee Hanley
== END ==
LOC: M EKG 16:35
PROVIDERS: ATTEND Family Medicine
DX: F11.20 Opioid dependence, uncomplicated (principal)